=== PATIENT | male | born 1960 | race Caucasian/White ===

== ENCOUNTER 2016-08-01 14:40 | Outpatient (CLI) | payer OTHER ==
--- NOTE | 2016-08-01 18:33 | DIAGNOSTIC IMAGING REPORT ---
PROCEDURE: MR UPPER EXTREMITY W/O CONT-RT INDICATION: PAIN IN RIGHT SHOULDER TECHNIQUE: PD and PD fat sat axial, T1 and PD fat sat coronal, PD and STIR sagittal sequences through the shoulder. COMPARISON: None. FINDINGS: Rotator cuff: There is a large full-thickness rotator cuff tear involving the most of the distal fibers of the supraspinatus tendon for a width of about 18 mm. The fibers are retracted by 13-18 mm. There is mild thickening and heterogeneous intrinsic signal involving the infraspinatus and mild subacromial subdeltoid bursal fluid present. There is tendinopathy and partial thickness tearing involving the distal subscapularis fibers Biceps tendon: Mild tendinopathy of the intra-articular portion with striated appearance at the anchor suggestive of partial tear. The rotator interval structures are intact. Osseous structures and articular surfaces: Mild lateral downsloping and moderate undersurface spurring involving the type 2 acromion. Irregularity and hypertrophy involving the acromioclavicular joint. Glenohumeral joint is intact. There is moderate irregularity of the humeral head cartilage on the superior surface. The glenoid fossa cartilage is normal thickness. Labral ligamentous complex: In the absence of intra-articular contrast, the glenoid labrum and supporting ligaments of the humeral head are suboptimally evaluated. There is likely an anterior superior labral tear with extension of fluid into the subcoracoid space. Intermediate signal is seen in the location of the remainder of the superior labrum. The remainder of the labrum appears grossly intact. Inferior glenohumeral ligaments appear grossly intact with intermediate signal. Middle glenohumeral ligament is suboptimally seen. Fluid, soft tissues, and joint space: Mild edema surrounding the supraspinatus myotendinous junction. Minor decrease in the supraspinatus muscle bulk. No glenohumeral joint effusion. No loose intra-articular bodies. IMPRESSION: 1. Large full-thickness supraspinatus rotator cuff tear with about 18 mm of tendon retraction. Minor muscular atrophy. This is probably partially due to subacromial spurring. 2. Tendinopathy and partial thickness tearing involving infraspinatus and subscapularis. 3. Superior labral degeneration and probable anterior superior labral tear with paralabral cyst extending into the subcoracoid space. 4. Partial thickness tearing of the intra-articular biceps tendon. 5. Probable strain of the supporting ligaments of the humeral head with intermediate signal but no full-thickness tear.
== END 2016-08-01 23:00 ==
LOC: MRI SRH 14:40
DX: M75.41 Impingement syndrome of right shoulder (principal); M75.101 Unspecified rotator cuff tear or rupture of right shoulder, not specified as traumatic; M65.811 Other synovitis and tenosynovitis, right shoulder